=== PATIENT | female | born 1965 | race Caucasian/White ===

== ENCOUNTER → 2016-10-21 | Outpatient (CLI) | payer BC ==
[~2016-10-21] MED LIST: MULT-506 PO; OXYC-57 PO
--- NOTE | 2016-10-21 12:46 | MAMMOGRAPHY REPORT ---
ULTRASOUND OF LEFT BREAST: 10/21/2016 CLINICAL HISTORY: Six-month follow-up of 2 left breast masses. COMPARISON: Comparison is made to exams dated: 03/29/2016 mammogram, 01/16/2014 mammogram, 01/15/2013 ma mmogram, 03/28/2011 mammogram - [facility], and 09/10/2008. TECHNIQUE: Real-time targeted ultrasound of the left breast was performed. FINDINGS: Targeted ultrasound was performed of the left breast in the region of the 2 previously seen mammogra phic masses. In the left breast at 6:00, 1 cm from the nipple, again noted is an oval hypoechoic ci rcumscribed solid mass. The mass does not appear significantly changed compared to the March 2016 ex am when accounting for differences in measurement technique, currently measuring 1.5 x 1.2 x 1.6 cm, previously measuring 1.8 x 1.2 x 1.9 cm. In the left breast at 4:00, 1 cm from the nipple, again n oted is an oval parallel circumscribed hypoechoic mass. The mass does not appear significantly valdivia ged in size compared to the prior exam, currently measuring 1.7 x 0.7 x 1.0 cm, previously measuring 1.5 x 0.7 x 1.0 cm. The 2 masses are probably benign and likely represent fibroadenomas. Recommen d a short interval follow-up in 6 months to confirm one-year stability. IMPRESSION: ACR-BI-RADS CATEGORY 3: PROBABLY BENIGN - FOLLOW-UP RECOMMENDED Two similar-appearing hypoechoic masses in the left breast at 6:00 and 1:00 are stable compared to t he March 2016 exam, and are probably benign and likely represent fibroadenomas. Recommend bilateral diagnostic mammograms and repeat ultrasound in 6 months, to confirm one-year stability of the left b reast masses and for routine mammography of the right breast. The patient was verbally notified of the results. Serene Carolina M.D. /:10/21/2016 11:17:50 Cooperative Extension Agent: Serene Carolina MD, [facility] letter sent: Follow Up Recommended 3 BI-RADS Code: ACR-BI-RADS Category 3: Probably Benign
== END | disposition home or self-care (01) ==
LOC: C.MAMM 10:22
PROVIDERS: ATTEND Internal Medicine
DX: R92.8 Other abnormal and inconclusive findings on diagnostic imaging of breast (principal); N63 Unspecified lump in breast

== ENCOUNTER → 2016-12-31 | Outpatient (CLI) | payer BC ==
[2016-12-31 11:33] LABS: CHOLESTEROL/HDL RATIO 2.7; THYROID STIMULATING HORMONE 0.756 uIu/ml (0.300-4.500)
[2016-12-31 12:12] LABS: ESTIMATED AVERAGE GLUCOSE 123 mg/dl; HA1C FLAG Normal (Normal)
== END | disposition home or self-care (01) ==
LOC: C.LABBC 08:39
PROVIDERS: ATTEND Internal Medicine
DX: R73.09 Other abnormal glucose (principal)

== ENCOUNTER → 2017-04-21 | Outpatient (CLI) | payer BC ==
[~2017-04-21] MED LIST changes: -OXYC-57 PO
--- NOTE | 2017-04-21 12:25 | MAMMOGRAPHY REPORT ---
BILATERAL DIGITAL DIAGNOSTIC MAMMOGRAM TOMOSYNTHESIS WITH CAD AND TARGETED LEFT ULTRASOUND: 04/21/2017 CLINICAL HISTORY: Short interval follow-up of left breast masses. Due for routine right mammography. The patient reports no new complaints. TECHNIQUE: Breast tomosynthesis in addition to standard 2D mammography was performed. Current study was also evaluated with a Computer Aided Detection (CAD) system. Bilateral CC and MLO 2-D and tomosy nthesis images were obtained. COMPARISON: Comparison is made to exams dated: 10/21/2016 ultrasound, 04/11/2016 ultrasound, 03/29/2016 mammogram, 01/16/2014 mammogram, 01/15/2013 mammogram, and 03/28/2011 mammogram - [facility]. BREAST COMPOSITION: The tissue of both breasts is extremely dense, which lowers the sensitivity of m ammography. FINDINGS: There has been no significant interval change mammographically compared to prior exams. T here are no suspicious masses, calcifications, or areas of architectural distortion noted within eith er breast. A partially rim calcified round 17 mm mass in the left 12:00 breast is stable, and consis tent with benign fat necrosis. Obscured oval mass in the left medial breast is again noted, and was shown to represent a benign cyst on a prior ultrasound exam. Scattered bilateral benign-appearing ca lcifications are not significantly changed. A linear scar marker denotes a scar on the right superio r breast. Targeted ultrasound was performed of the left breast masses. In the left breast at 6:00, 1 cm from t he nipple, again noted is an oval hypoechoic solid circumscribed mass which measures 1.5 x 1.2 x 1.5 cm, not significantly changed dating back to the March 2016 exam, previously measuring 1.9 x 1.8 x 1.2 cm.. A similar appearing oval circumscribed hypoechoic solid mass in the left breast at 4:00, 1 cm from the nipple, is again noted, measuring 1.5 x 0.7 x 0.9 cm. This is also stable dating back to e March 2016 exam, previously measuring 1.5 x 0.7 x 1.0 cm. The masses are probably benign given one- year stability and likely represent fibroadenomas. IMPRESSION: ACR-BI-RADS CATEGORY 3: PROBABLY BENIGN, TARGETED ULTRASOUND ACR-BI-RADS CATEGORY 3: PRO BABLY BENIGN Two hypoechoic circumscribed masses in the left breast at 6:00 and 4:00 are stable dating back to the March 2016 exam, and are probably benign and likely represent fibroadenomas. Recommend bilateral rebecca gnostic mammograms and targeted left breast ultrasound in 12 months, to confirm 2 years of stability of the left breast masses and for routine mammography of the right breast. The patient has been verbally notified of the results. Approximately 10% of breast cancers are not detected with mammography. A negative mammographic report should not delay biopsy if a clinically suggestive mass is present. Serene Carolina M.D. ah/:04/21/2017 11:36:48 Housekeeping Worker: Vikki SEQUEIRA(Joy)(Ovidio), [facility] letter sent: Follow Up Recommended 3 BI-RADS Code: ACR-BI-RADS Category 3: Probably Benign Ultrasound BI-RADS: ACR-BI-RADS Category 3: Pr obably Benign
== END | disposition home or self-care (01) ==
LOC: C.MAMM 09:17
PROVIDERS: ATTEND Internal Medicine
DX: N63 Unspecified lump in breast (principal)